=== PATIENT | female | born 1985 | race Hispanic/Latino ===

== ENCOUNTER 2018-08-19 13:54 | Emergency (ER) | payer OTHER, SELFPAY ==
[2018-08-19] MEDS ORDERED: BUPIVACAINE 0.5% PF 10 ML VIAL ONE (14:53)
[2018-08-19] MEDS ORDERED: LIDOCAINE 1% MPF 5 ML VIAL ONE ×2 (14:53→15:25)
--- NOTE | 2018-08-19 15:39 | RAD REPORT ---
EXAM DESCRIPTION: RAD - Hand Left 3 View - 08/19/2018 3:04 pm CLINICAL HISTORY: Left hand pain COMPARISON: None. FINDINGS: No fracture, dislocation or periosteal reaction noted. No foreign body or other soft tissu e abnormality. IMPRESSION: Negative left hand examination.
--- NOTE | 2018-08-19 15:58 | EDPHYS ---
Physician Documentation [facility] Name: Deborah Ace Age: 32 yrs Sex: Female : 1985 Arrival Date: 08/19/2018 Time: 13:57 Bed 10 Private MD: None, None ED Physician Wesley Alexandra HPI: 08/19 15:55 This 32 yrs old Female presents to ER via Ambulatory with complaints of Finger kb Injury. 15:55 The patient or guardian reports injury, pain, tenderness. The complaints affect the kb left little fingernail. Context: The problem was sustained at home, resulted from making bed and nail got caught. Onset: The symptoms/episode began/occurred this morning. Modifying factors: The symptoms are alleviated by nothing, the symptoms are aggravated by nothing. Associated signs and symptoms: The patient has no apparent associated signs or symptoms. Severity of symptoms: At their worst the symptoms were moderate, in the emergency department the symptoms are unchanged. The patient has experienced similar episodes in the past, a few times. The patient has not recently seen a physician. Pt was making her bed and her nail got caught. Reports she's not sure what happened, but her left little finger has been hurting since then. Does not believe nail lifted off of finger. Applied purple medication that dyed finger and some ointment with no relief. 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 - Social history:: Smoking status: Patient/guardian denies using tobacco. - Ebola Screening: : No symptoms or risks identified at this time. ROS: 15:52 Constitutional: Negative for fever, chills, and weight loss, Cardiovascular: Negative kb for chest pain, palpitations, and edema, Respiratory: Negative for shortness of breath, cough, wheezing, and pleuritic chest pain, Abdomen/GI: Negative for abdominal pain, nausea, vomiting, diarrhea, and constipation, Neuro: Negative for headache, weakness, numbness, tingling, and seizure. 15:52 MS/extremity: Positive for injury or acute deformity, pain, tenderness, of the left index finger and left index fingernail. Exam: 15:53 Constitutional: This is a well developed, well nourished patient who is awake, alert, kb and in no acute distress. Head/Face: Normocephalic, atraumatic. Chest/axilla: Normal chest wall appearance and motion. Nontender with no deformity. No lesions are appreciated. Cardiovascular: Regular rate and rhythm with a normal S1 and S2. No gallops, murmurs, or rubs. Normal PMI, no JVD. No pulse deficits. Respiratory: Lungs have equal breath sounds bilaterally, clear to auscultation and percussion. No rales, rhonchi or wheezes noted. No increased work of breathing, no retractions or nasal flaring. Abdomen/GI: Soft, non-tender, with normal bowel sounds. No distension or tympany. No guarding or rebound. No evidence of tenderness throughout. Skin: Warm, dry with normal turgor. Normal color with no rashes, no lesions, and no evidence of cellulitis. Neuro: Awake and alert, GCS 15, oriented to person, place, time, and situation. Cranial nerves II-XII grossly intact. Motor strength 5/5 in all extremities. Sensory grossly intact. Cerebellar exam normal. Normal gait. 15:53 Musculoskeletal/extremity: Nails: partial avulsion, of the left little fingernail. Vital Signs: 14:01 BP 119 / 75; Pulse 65; Resp 16; Temp 97.5; Pulse Ox 98% on R/A; Weight 72.57 kg; Height la1 5 ft. 3 in. (160.02 cm); Pain 5/10; 14:01 Body Mass Index 28.34 (72.57 kg, 160.02 cm) la1 Procedures: 15:54 Nerve block: (digital) of palmar aspect of proximal phalanx of left little finger kb Medication: Lidocaine 1% without epinephrine Marcaine 0.5%, Amount: 4 mls were injected, Effect: the patient has resolution of the pain, Set up for procedure. Performed by Alma MARTINES Patient tolerated well. MDM: 14:26 Patient medically screened. kb 15:53 Data reviewed: vital signs, nurses notes. Data interpreted: Pulse oximetry: on room air kb is 98 %. Interpretation: normal. Counseling: I had a detailed discussion with the patient and/or guardian regarding: the historical points, exam findings, and any diagnostic results supporting the discharge/admit diagnosis, radiology results, the need for outpatient follow up, a family practitioner, to return to the emergency department if symptoms worsen or persist or if there are any questions or concerns that arise at home. 08/19 14:02 Order name: Hand Left 3 View XRAY; Complete Time: 15:43 kb Administered Medications: No medications were administered Disposition: 18:47 Co-signature as Attending Physician, Wesley Alexandra MD. rn Disposition: 08/19/18 15:58 Discharged to Home. Impression: Contusion of left little finger with damage to nail - partial avulsion of nail. - Condition is Stable. - Discharge Instructions: Nail Avulsion. - Medication Reconciliation Form, Thank You Letter, Antibiotic Education, Prescription Opioid Use form. - Follow up: Emergency Department; When: As needed; Reason: Worsening of condition. Follow up: Private Physician; When: 2 - 3 days; Reason: Recheck today's complaints, Continuance of care, Re-evaluation by your physician. Signatures: Dispatcher [employer] [facility] Alma Farias, TOOL FILER HAND-C TOOL FILER HAND-Ckb Wesley Alexandra MD MD rn Jono Landaverde RN RN la1 Corrections: (The following items were deleted from the chart) 14:05 14:02 Hand Left 3 View+RAD.RAD.BRZ ordered. [facility] 16:07 15:58 08/19/2018 15:58 Discharged to Home. Impression: Contusion of left little finger la1 with damage to nail - partial avulsion of nail. Condition is Stable. Forms are Medication Reconciliation Form, Thank You Letter, Antibiotic Education, Prescription Opioid Use. Follow up: Emergency Department; When: As needed; Reason: Worsening of condition. Follow up: Private Physician; When: 2 - 3 days; Reason: Recheck today's complaints, Continuance of care, Re-evaluation by your physician. kb
--- NOTE | 2018-08-19 15:58 | ER ---
Nurse's Notes [facility] Name: Deborah Ace Age: 32 yrs Sex: Female : 1985 Arrival Date: 08/19/2018 Time: 13:57 Bed 10 Private MD: None, None Diagnosis: Contusion of left little finger with damage to nail-partial avulsion of nail Presentation: 08/19 14:00 Presenting complaint: Patient states: I jammed my left pinky in the bed this morning la1 and its hurting. Transition of care: patient was not received from another setting of care. Onset of symptoms was August 19, 2018. Risk Assessment: Do you want to hurt yourself or someone else? Patient reports no desire to harm self or others. Initial Sepsis Screen: Does the patient meet any 2 criteria? No. Patient's initial sepsis screen is negative. Does the patient have a suspected source of infection? No. Patient's initial sepsis screen is negative. Care prior to arrival: None. 14:00 Method Of Arrival: Ambulatory la1 14:00 Acuity: LUCI 4 la1 Triage Assessment: 17:30 General: Appears in no apparent distress. Injury Description: Avulsion. 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 - Social history:: Smoking status: Patient/guardian denies using tobacco. - Ebola Screening: : No symptoms or risks identified at this time. Screenin:15 Abuse screen: Denies threats or abuse. Nutritional screening: No deficits noted. la1 Tuberculosis screening: No symptoms or risk factors identified. Fall Risk None identified. Assessment: 14:15 General: Appears in no apparent distress. Behavior is calm, cooperative. Pain: la1 Complains of pain in dorsal aspect of distal phalanx of left little finger and dorsal aspect of middle phalanx of left little finger. Neuro: Level of Consciousness is awake, alert, obeys commands, Oriented to person, place, time, situation. Musculoskeletal: Circulation, motion, and sensation intact. Capillary refill < 3 seconds, is brisk, in bilateral fingers. Range of motion: limited in DIP of left little finger and PIP of left little finger. Vital Signs: 14:01 BP 119 / 75; Pulse 65; Resp 16; Temp 97.5; Pulse Ox 98% on R/A; Weight 72.57 kg; Height la1 5 ft. 3 in. (160.02 cm); Pain 5/10; 14:01 Body Mass Index 28.34 (72.57 kg, 160.02 cm) la1 ED Course: 13:57 Patient arrived in ED. mr 13:57 None, None is Private Physician. mr 14:01 Triage completed. la1 14:01 Arm band placed on left wrist. la1 14:02 Alma Farias FNP-C is PHCP. kb 14:02 Wesley Alexandra MD is Attending Physician. kb 14:15 Patient has correct armband on for positive identification. la1 14:16 No provider procedures requiring assistance completed. Patient did not have IV access la1 during this emergency room visit. 14:48 Emerald Moore, RN is Primary Nurse. iw 15:04 Hand Left 3 View XRAY In Process Unspecified. EDMS Administered Medications: No medications were administered Outcome: 15:58 Discharge ordered by MD. kb 16:06 Discharged to home ambulatory, with family. iw 16:06 Condition: good 16:06 Discharge instructions given to patient, Instructed on discharge instructions, follow up and referral plans. Demonstrated understanding of instructions, follow-up care. 16:07 Patient left the ED. la1 Signatures: Dispatcher [employer] EDMS Alma Farias FNP-C FNP-Ckb Rivera, Mary mr Emerald Moore RN Jono Montiel RN RN la1
== END 2018-08-19 16:07 | disposition home or self-care (01) ==
LOC: ER 13:54
DX: S60.152A Contusion of left little finger with damage to nail, initial encounter (principal)
CPT/HCPCS: 64450; 99283

== ENCOUNTER 2019-02-06 16:54 | Emergency (ER) | payer OTHER, SELFPAY ==
[2019-02-06] MEDS ORDERED: DICYCLOMINE HCL 10 MG CAP ONE (17:51)
[2019-02-06] MEDS ORDERED: LIDOCAINE VISCOUS 2% SOLN 15 ML UDC ONE (17:51)
[2019-02-06] MEDS ORDERED: MAGNE/ALUM HYDROXD 30 ML UCUP ONE (17:51)
[2019-02-06 17:58] LABS: Absolute Lymphocytes (CBC) 1.7 K/uL (0.7-4.9); Basophils % 0.2 % (0-1.3); Hematocrit 31.4 % (36.0-45.0); Lymphocytes % 22.5 % (15.3-44.8); MPV 12.5 fL (7.6-11.3); RBC Red Blood Cell Count 3.62 M/uL (3.86-4.86)
[2019-02-06 18:13] LABS: ALT/SGPT 44 U/L (12-78); AST/SGOT 22 U/L (15-37); Albumin 3.5 g/dL (3.4-5.0); Alkaline Phosphatase 89 U/L (45-117); BUN Blood Urea Nitrogen 8 mg/dL (7-18); Bicarbonate 26 mmol/L (21-32); Bilirubin Direct < 0.1 mg/dL (0-0.2); Bilirubin Total 0.2 mg/dL (0.2-1.0); Glucose Level 102 mg/dL (74-106); Lipase 50 U/L (73-393); Potassium 3.6 mmol/L (3.5-5.1); Sodium Level 141 mmol/L (136-145)
--- NOTE | 2019-02-06 18:55 | ER ---
Nurse's Notes [facility] Name: Deborah Ace Age: 33 yrs Sex: Female : 1985 Arrival Date: 02/06/2019 Time: 16:58 Bed 26 Private MD: Diagnosis: Upper abdominal pain, unspecified Presentation: 02/06 17:05 Presenting complaint: Epigastric pain x 2 days. Hx of gastritis. Transition of care: hb patient was not received from another setting of care. Onset of symptoms was February 05, 2019. Risk Assessment: Do you want to hurt yourself or someone else? Patient reports no desire to harm self or others. Initial Sepsis Screen: Does the patient meet any 2 criteria? No. Patient's initial sepsis screen is negative. Does the patient have a suspected source of infection? No. Patient's initial sepsis screen is negative. Care prior to arrival: None. 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 - Social history:: Smoking status: Patient/guardian denies using tobacco. - Ebola Screening: : No symptoms or risks identified at this time. Screenin:19 Abuse screen: Denies threats or abuse. Denies injuries from another. Nutritional rv screening: No deficits noted. Tuberculosis screening: No symptoms or risk factors identified. Fall Risk None identified. Assessment: 17:17 General: Appears in no apparent distress. uncomfortable, Behavior is calm, cooperative. rv Pain: Complains of pain in abdomen. Pain: Pain currently is 6 out of 10 on a pain scale. Quality of pain is described as pressure. Neuro: Level of Consciousness is awake, alert, obeys commands, Oriented to person, place, time, situation. Cardiovascular: Patient's skin is warm and dry. Respiratory: Airway is patent. GI: Bowel sounds present X 4 quads. Abd is soft and non tender X 4 quads. Reports upper abdominal pain. : No signs and/or symptoms were reported regarding the genitourinary system. EENT: No signs and/or symptoms were reported regarding the EENT system. Derm: Skin is intact, is healthy with good turgor. Musculoskeletal: No signs and/or symptoms reported regarding the musculoskeletal system. 18:18 Reassessment: Patient appears in no apparent distress at this time. Patient is alert, rv oriented x 3, equal unlabored respirations, skin warm/dry/pink. Patient denies pain at this time. Patient states feeling better. Patient states symptoms have improved. Vital Signs: 17:07 BP 114 / 76; Pulse 77; Resp 16; Temp 98.2; Pulse Ox 99% on R/A; Weight 78.47 kg; Height hb 5 ft. 3 in. (160.02 cm); Pain 7/10; 18:18 Pain 0/10; rv 18:18 Pain 0/10; rv 17:07 Body Mass Index 30.65 (78.47 kg, 160.02 cm) hb ED Course: 16:58 Patient arrived in ED. mr 17:01 Alma Farias FNP-C is [facility]. kb 17:01 Octaviano Pagan MD is Attending Physician. kb 17:06 Triage completed. hb 17:07 Arm band placed on. hb 17:12 Edwin Orozco, ZAKIYA is Primary Nurse. rv 17:19 Patient has correct armband on for positive identification. Bed in low position. Call rv light in reach. Side rails up X 1. Adult w/ patient. Pulse ox on. NIBP on. 17:59 Initial lab(s) drawn, by fl, sent to lab. Inserted saline lock: 20 gauge in right rv antecubital area, using aseptic technique. Blood collected. 19:03 No provider procedures requiring assistance completed. IV discontinued, intact, sg bleeding controlled, No redness/swelling at site. Pressure dressing applied. Administered Medications: 17:58 Drug: GI Cocktail without - (Maalox Suspension 30 ml, Lidocaine Liquid 2 % 15 rv ml) Route: PO; 18:18 Follow up: Pain 0/10 Adult; Response: No adverse reaction; Marked relief of symptoms; rv Pain is decreased 17:58 Drug: Bentyl 20 mg Route: PO; rv 18:18 Follow up: Pain 0/10 Adult; Response: No adverse reaction; Marked relief of symptoms; rv Pain is decreased Outcome: 18:52 Discharge ordered by . kb 19:03 Discharged to home ambulatory, with family. sg 19:03 Condition: good 19:03 Discharge instructions given to patient, Instructed on discharge instructions, follow up and referral plans. medication usage, safety practices, Demonstrated understanding of instructions, follow-up care, medications, Prescriptions given X 1. 19:04 Patient left the ED. Signatures: Alma Farias, AUTO BATTERY BUILDER-C LEONARDO-Patrick Aguila RN RN Isabelle Cavanaugh mr Ana Laura Gonsalves RN RN Edwin Orozco RN RN rv
--- NOTE | 2019-02-06 18:56 | EDPHYS ---
Physician Documentation [facility] Name: Deborah Ace Age: 33 yrs Sex: Female : 1985 Arrival Date: 02/06/2019 Time: 16:58 Bed 26 Private MD: ED Physician Octaviano Pagan HPI: 02/06 18:07 This 33 yrs old Female presents to ER via Ambulatory with complaints of kb Abdominal Pain. 18:07 The patient presents with abdominal pain in the epigastric area. Onset: The kb symptoms/episode began/occurred 3 day(s) ago. The symptoms do not radiate. Associated signs and symptoms: none. The symptoms are described as sharp. Modifying factors: The symptoms are alleviated by nothing, the symptoms are aggravated by food. Severity of pain: At its worst the pain was moderate in the emergency department the pain is unchanged. The patient has experienced similar episodes in the past, chronically. The patient has not recently seen a physician. Pt reports history of gastritis with similar symptoms in the past. . 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 - Social history:: Smoking status: Patient/guardian denies using tobacco. - Ebola Screening: : No symptoms or risks identified at this time. ROS: 18:10 Constitutional: Negative for fever, chills, and weight loss, ENT: Negative for injury, kb pain, and discharge, Neck: Negative for injury, pain, and swelling, Cardiovascular: Negative for chest pain, palpitations, and edema, Respiratory: Negative for shortness of breath, cough, wheezing, and pleuritic chest pain, Back: Negative for injury and pain, : Negative for injury, bleeding, discharge, and swelling, MS/Extremity: Negative for injury and deformity, Skin: Negative for injury, rash, and discoloration, Neuro: Negative for headache, weakness, numbness, tingling, and seizure. 18:10 Abdomen/GI: Positive for abdominal pain. Exam: 18:10 Constitutional: This is a well developed, well nourished patient who is awake, alert, kb and in no acute distress. Head/Face: Normocephalic, atraumatic. ENT: Nares patent. No nasal discharge, no septal abnormalities noted. Tympanic membranes are normal and external auditory canals are clear. Oropharynx with no redness, swelling, or masses, exudates, or evidence of obstruction, uvula midline. Mucous membranes moist. Neck: Trachea midline, no thyromegaly or masses palpated, and no cervical lymphadenopathy. Supple, full range of motion without nuchal rigidity, or vertebral point tenderness. No Meningismus. Chest/axilla: Normal chest wall appearance and motion. Nontender with no deformity. No lesions are appreciated. Cardiovascular: Regular rate and rhythm with a normal S1 and S2. No gallops, murmurs, or rubs. Normal PMI, no JVD. No pulse deficits. Respiratory: Lungs have equal breath sounds bilaterally, clear to auscultation and percussion. No rales, rhonchi or wheezes noted. No increased work of breathing, no retractions or nasal flaring. Back: No spinal tenderness. No costovertebral tenderness. Full range of motion. Skin: Warm, dry with normal turgor. Normal color with no rashes, no lesions, and no evidence of cellulitis. MS/ Extremity: Pulses equal, no cyanosis. Neurovascular intact. Full, normal range of motion. Neuro: Awake and alert, GCS 15, oriented to person, place, time, and situation. Cranial nerves II-XII grossly intact. Motor strength 5/5 in all extremities. Sensory grossly intact. Cerebellar exam normal. Normal gait. 18:10 Abdomen/GI: Inspection: abdomen appears normal, Bowel sounds: normal, in all quadrants, Palpation: soft, in all quadrants, moderate abdominal tenderness, in the epigastric area. Vital Signs: 17:07 BP 114 / 76; Pulse 77; Resp 16; Temp 98.2; Pulse Ox 99% on R/A; Weight 78.47 kg; Height hb 5 ft. 3 in. (160.02 cm); Pain 7/10; 18:18 Pain 0/10; rv 18:18 Pain 0/10; rv 17:07 Body Mass Index 30.65 (78.47 kg, 160.02 cm) hb MDM: 17:17 Patient medically screened. kb 18:10 Data reviewed: vital signs, nurses notes. Data interpreted: Pulse oximetry: on room air kb is 99 %. Interpretation: normal. 18:46 Counseling: I had a detailed discussion with the patient and/or guardian regarding: the kb historical points, exam findings, and any diagnostic results supporting the discharge/admit diagnosis, lab results, the need for outpatient follow up, a family practitioner, a supplier relationship director, to return to the emergency department if symptoms worsen or persist or if there are any questions or concerns that arise at home. ED course: Pt reports pain is resolved after treatment. 02/06 17:31 Order name: Basic Metabolic Panel; Complete Time: 18:18 kb 02/06 17:31 Order name: CBC with Diff; Complete Time: 18:03 kb 02/06 17:31 Order name: Hepatic Function; Complete Time: 18:18 kb 02/06 17:31 Order name: Lipase; Complete Time: 18:18 kb 02/06 17:31 Order name: IV Saline Lock; Complete Time: 17:58 kb 02/06 17:31 Order name: Labs collected and sent; Complete Time: 17:58 kb Administered Medications: 17:58 Drug: GI Cocktail without - (Maalox Suspension 30 ml, Lidocaine Liquid 2 % 15 rv ml) Route: PO; 18:18 Follow up: Pain 0/10 Adult; Response: No adverse reaction; Marked relief of symptoms; rv Pain is decreased 17:58 Drug: Bentyl 20 mg Route: PO; rv 18:18 Follow up: Pain 0/10 Adult; Response: No adverse reaction; Marked relief of symptoms; rv Pain is decreased Disposition: 02/07 08:55 Co-signature as Attending Physician, Octaviano Pagan MD I agree with the assessment and kdr plan of care. Disposition: 02/06/19 18:52 Discharged to Home. Impression: Upper abdominal pain, unspecified. - Condition is Stable. - Discharge Instructions: Gastroesophageal Reflux Disease, Adult, Abdominal Pain, Adult, [id number]. - Prescriptions for Bentyl 20 mg Oral Tablet - take 1 tablet by ORAL route every 6 hours As needed; 20 tablet. - Medication Reconciliation Form, Thank You Letter, Antibiotic Education, Prescription Opioid Use form. - Follow up: Emergency Department; When: As needed; Reason: Worsening of condition. Follow up: Private Physician; When: 2 - 3 days; Reason: Recheck today's complaints, Continuance of care, Re-evaluation by your physician. Signatures: Dispatcher [employer] EDMS Alma Farias, BEVEL POLISHER-C BEVEL POLISHER-Ckb Patrick Ziegler, RN RN sg Octaviano Pagan MD MD [facility] Ana Laura Gonsalves RN RN Edwin Orozco, RN RN rv Corrections: (The following items were deleted from the chart) 02/06 19:04 18:52 02/06/2019 18:52 Discharged to Home. Impression: Upper abdominal pain, sg unspecified. Condition is Stable. Discharge Instructions: Gastroesophageal Reflux Disease, Adult, Abdominal Pain, Adult, [id number]. Forms are Medication Reconciliation Form, Thank You Letter, Antibiotic Education, Prescription Opioid Use. Follow up: Emergency Department; When: As needed; Reason: Worsening of condition. Follow up: Private Physician; When: 2 - 3 days; Reason: Recheck today's complaints, Continuance of care, Re-evaluation by your physician. kb
[2019-02-06 22:49] VITALS: BP 114/76; TEMP 98.2; O2SAT 99
== END 2019-02-06 19:04 | disposition home or self-care (01) ==
LOC: ER 16:54
DX: R10.10 Upper abdominal pain, unspecified (principal); Z88.0 Allergy status to penicillin
CPT/HCPCS: 36415; 80048; 80076; 83690; 85025; 99284

== ENCOUNTER 2019-08-07 09:23 | Emergency (ER) | payer SELFPAY ==
[2019-08-07] MEDS ORDERED: ONDANSETRON 4 MG/2 ML VIAL ONE (10:01)
[2019-08-07] MEDS ORDERED: NA CHLORIDE 0.9% 1,000 ML ONE (10:01)
[2019-08-07 10:33] LABS: Absolute Lymphocytes (CBC) 2.2 K/uL (0.7-4.9); Basophils % 0.3 % (0-1.3); Hematocrit 33.6 % (36.0-45.0); MPV 11.7 fL (7.6-11.3); RBC Red Blood Cell Count 3.96 M/uL (3.86-4.86)
[2019-08-07 10:41] LABS: ALT/SGPT 30 U/L (12-78); AST/SGOT 17 U/L (15-37); Alkaline Phosphatase 84 U/L (45-117); BUN Blood Urea Nitrogen 11 mg/dL (7-18); Bicarbonate 26 mmol/L (21-32); Bilirubin Direct < 0.1 mg/dL (0-0.2); Bilirubin Total 0.2 mg/dL (0.2-1.0); Glucose Level 91 mg/dL (74-106); Lipase 80 U/L (73-393); Potassium 3.8 mmol/L (3.5-5.1); Protein, Total 8.2 g/dL (6.4-8.2); Sodium Level 139 mmol/L (136-145)
[2019-08-07 11:18] LABS: Urine Blood TRACE (NEG); Urine Glucose NEGATIVE (NEG); Urine Protein NEGATIVE (NEG); Urine Specific Gravity 1.025 (1.005-1.030); Urine pH 5.5 (5.0-7.0)
--- NOTE | 2019-08-07 11:36 | RAD REPORT ---
EXAM DESCRIPTION: RAD - Abdomen 1 View (KUB) - 08/07/2019 11:30 am CLINICAL HISTORY: Abd pain;Constipation Pain COMPARISON: No comparisons FINDINGS: The bowel gas pattern is non-obstructive. No evidence of free air or pneumatosis. Small no nspecific right upper quadrant calcification could be a gallstone. Moderate fecal retention. No fracture or aggressive marrow lesion. IMPRESSION: Moderate fecal retention in the colon.
--- NOTE | 2019-08-07 11:42 | ER ---
Nurse's Notes [facility] Name: Deborah Ace Age: 33 yrs Sex: Female : 1985 Arrival Date: 08/07/2019 Time: 09:25 Bed 8 Private MD: Diagnosis: Constipation;Nausea and vomiting Presentation: 08/06 09:33 Chief complaint: Patient states: Constipation x "a few days", epigastric pain and ss nausea since this AM. Coronavirus screen: The patient has NOT traveled to a country currently being monitored by the CDC within the last 14 days. Proceed with normal triage procedures. Ebola Screen: Patient denies exposure to infectious person. Patient denies travel to an Ebola-affected area in the 21 days before illness onset. Initial Sepsis Screen: Does the patient meet any 2 criteria? No. Patient's initial sepsis screen is negative. Does the patient have a suspected source of infection? No. Patient's initial sepsis screen is negative. Risk Assessment: Do you want to hurt yourself or someone else? Patient reports no desire to harm self or others. 09:33 Method Of Arrival: Ambulatory ss 09:33 Acuity: LUCI 3 ss 09:38 Onset of symptoms was July 2019. sv Historical: - Allergies: 09:29 PENICILLINS; sv - PMHx: 09:29 gastritis; sv - PSHx: 09:29 Cholecystectomy; Tubal ligation; sv - Immunization history:: Adult Immunizations up to date. - Social history:: Smoking status: Patient denies any tobacco usage or history of. Screenin:00 Abuse screen: Denies threats or abuse. Denies injuries from another. Nutritional sv screening: No deficits noted. Tuberculosis screening: No symptoms or risk factors identified. Fall Risk None identified. Assessment: 10:00 General: Appears in no apparent distress. uncomfortable, well developed, Behavior is sv cooperative, appropriate for age, restless. Pain: Complains of pain in abdomen Pain currently is 7 out of 10 on a pain scale. Quality of pain is described as crampy, Pain began 1 day ago. Is intermittent. Neuro: Level of Consciousness is awake, alert, obeys commands, Oriented to person, place, time, situation, Moves all extremities. Full function Gait is steady, Speech is normal. Respiratory: Airway is patent Respiratory effort is even, unlabored, Respiratory pattern is regular, symmetrical. GI: Abdomen is flat, Abd is soft X 4 quads Abdomen is tender to palpation in epigastric area Reports upper abdominal pain, constipation, nausea, she just had 2 BMs here. Derm: Skin is pink, warm \\T\\ dry. Musculoskeletal: Range of motion: intact in all extremities. 12:02 Reassessment: Patient appears in no apparent distress at this time. Patient and/or sv family updated on plan of care and expected duration. Pain level reassessed. Patient is alert, oriented x 3, equal unlabored respirations, skin warm/dry/pink. Patient denies pain at this time. Patient states feeling better. Patient states symptoms have improved. Vital Signs: 09:33 BP 115 / 74; Pulse 89; Resp 18; Temp 97.3(TE); Pulse Ox 100% on R/A; Weight 77.11 kg; ss Height 5 ft. 3 in. (160.02 cm); Pain 7/10; 10:16 BP 97 / 73; Pulse 64; Resp 20; Pulse Ox 99% ; sv 10:44 BP 104 / 68; Pulse 59; Resp 16; Pulse Ox 100% ; sv 09:33 Body Mass Index 30.11 (77.11 kg, 160.02 cm) ED Course: 09:25 Patient arrived in ED. mr 09:29 Arm band placed on Patient placed in an exam room, on a stretcher. sv 09:29 Patient has correct armband on for positive identification. Bed in low position. Call sv light in reach. Adult w/ patient. Door closed. Head of bed elevated. 09:34 Alma Farias FNP-C [facility]. kb 09:34 Octaviano Pagan MD is Attending Physician. kb 09:34 Triage completed. ss 09:36 Brynn Rose RN is Primary Nurse. sv 09:52 Nurse Practitioner and/or Physician Parking Patroller to see patient. sv 10:00 Inserted saline lock: 20 gauge in right antecubital area, using aseptic technique. sv Blood collected. Flushed right antecubital with 5 ml normal saline. 11:14 Urine collected: clean catch specimen, clear. dh3 11:16 Abdomen 1 View (KUB) XRAY Sent. sv 11:30 Abdomen 1 View (KUB) XRAY In Process Unspecified. EDMS 12:02 No provider procedures requiring assistance completed. IV discontinued, intact, sv bleeding controlled, No redness/swelling at site. Pressure dressing applied. Administered Medications: 10:09 Drug: NS 0.9% 1000 ml Route: IV; Rate: 1000 ml; Site: right antecubital; sv 11:00 Follow up: Response: No adverse reaction; IV Status: Completed infusion; IV Intake: sv 1000ml 10:09 Drug: Zofran (Ondansetron) 4 mg Route: IVP; Site: right antecubital; sv 11:00 Follow up: Response: No adverse reaction sv 12:01 Drug: Magnesium Citrate Liquid 300 ml Route: PO; sv 12:02 Follow up: Response: Medication administered at discharge. sv Intake: 11:00 IV: 1000ml; Total: 1000ml. sv Outcome: 11:42 Discharge ordered by . kb 12:02 Discharged to home ambulatory, with family. sv 12:02 Condition: stable 12:02 Discharge instructions given to patient, Instructed on discharge instructions, follow up and referral plans. medication usage, Demonstrated understanding of instructions, follow-up care, medications, Prescriptions given X 2. 12:02 Patient left the ED. sv Signatures: Dispatcher [employer] EDMS Alma Farias, FILING MACHINE OPERATOR-C FILING MACHINE OPERATOR-Brynn Latif, RN RN Isabelle Mathias Shelby, Hallie Cardona RN
--- NOTE | 2019-08-07 11:42 | EDPHYS ---
Physician Documentation [facility] Name: Deborah Ace Age: 33 yrs Sex: Female : 1985 Arrival Date: 08/07/2019 Time: 09:25 Bed 8 Private MD: ED Physician Octaviano Pagan HPI: 08/06 10:47 This 33 yrs old Female presents to ER via Ambulatory with complaints of kb Abdominal Pain, Nausea. 10:47 The patient presents with abdominal pain in the epigastric area. Onset: The kb symptoms/episode began/occurred this morning. The symptoms do not radiate. Associated signs and symptoms: Pertinent positives: constipation, nausea, Pertinent negatives: nausea and vomiting, diarrhea, fever. The symptoms are described as constant. Modifying factors: The symptoms are alleviated by nothing, the symptoms are aggravated by nothing. Severity of pain: At its worst the pain was moderate in the emergency department the pain is unchanged. The patient has not experienced similar symptoms in the past. Pt reports chronic constipation. States she has been going very little over the last few days. Reports epigastric pain and nausea this morning . Historical: - Allergies: 09:29 PENICILLINS; sv - PMHx: 09:29 gastritis; sv - PSHx: 09:29 Cholecystectomy; Tubal ligation; sv - Immunization history:: Adult Immunizations up to date. - Social history:: Smoking status: Patient denies any tobacco usage or history of. ROS: 10:46 Constitutional: Negative for fever, chills, and weight loss, ENT: Negative for injury, kb pain, and discharge, Neck: Negative for injury, pain, and swelling, Cardiovascular: Negative for chest pain, palpitations, and edema, Respiratory: Negative for shortness of breath, cough, wheezing, and pleuritic chest pain, Back: Negative for injury and pain, MS/Extremity: Negative for injury and deformity, Skin: Negative for injury, rash, and discoloration, Neuro: Negative for headache, weakness, numbness, tingling, and seizure. 10:46 Abdomen/GI: Positive for abdominal pain, nausea, constipation, Negative for vomiting, diarrhea, abdominal cramps, abdominal distension, anorexia. Exam: 10:46 Constitutional: This is a well developed, well nourished patient who is awake, alert, kb and in no acute distress. Head/Face: Normocephalic, atraumatic. Chest/axilla: Normal chest wall appearance and motion. Nontender with no deformity. No lesions are appreciated. Cardiovascular: Regular rate and rhythm with a normal S1 and S2. No gallops, murmurs, or rubs. Normal PMI, no JVD. No pulse deficits. Respiratory: Lungs have equal breath sounds bilaterally, clear to auscultation and percussion. No rales, rhonchi or wheezes noted. No increased work of breathing, no retractions or nasal flaring. Abdomen/GI: Soft, non-tender, with normal bowel sounds. No distension or tympany. No guarding or rebound. No evidence of tenderness throughout. Back: No spinal tenderness. No costovertebral tenderness. Full range of motion. Skin: Warm, dry with normal turgor. Normal color with no rashes, no lesions, and no evidence of cellulitis. MS/ Extremity: Pulses equal, no cyanosis. Neurovascular intact. Full, normal range of motion. Neuro: Awake and alert, GCS 15, oriented to person, place, time, and situation. Cranial nerves II-XII grossly intact. Motor strength 5/5 in all extremities. Sensory grossly intact. Cerebellar exam normal. Normal gait. Vital Signs: 09:33 BP 115 / 74; Pulse 89; Resp 18; Temp 97.3(TE); Pulse Ox 100% on R/A; Weight 77.11 kg; ss Height 5 ft. 3 in. (160.02 cm); Pain 7/10; 10:16 BP 97 / 73; Pulse 64; Resp 20; Pulse Ox 99% ; sv 10:44 BP 104 / 68; Pulse 59; Resp 16; Pulse Ox 100% ; sv 09:33 Body Mass Index 30.11 (77.11 kg, 160.02 cm) ss MDM: 09:35 Patient medically screened. kb 10:46 Data reviewed: vital signs, nurses notes. Data interpreted: Pulse oximetry: on room air kb is 100 %. Interpretation: normal. 11:41 Counseling: I had a detailed discussion with the patient and/or guardian regarding: the kb historical points, exam findings, and any diagnostic results supporting the discharge/admit diagnosis, lab results, radiology results, the need for outpatient follow up, a family practitioner, to return to the emergency department if symptoms worsen or persist or if there are any questions or concerns that arise at home. 08/06 09:55 Order name: Basic Metabolic Panel; Complete Time: 10:42 kb 08/06 09:55 Order name: CBC with Diff; Complete Time: 10:35 kb 08/06 09:55 Order name: Hepatic Function; Complete Time: 10:42 kb 08/06 09:55 Order name: Lipase; Complete Time: 10:42 kb 08/06 11:13 Order name: Urine Dipstick--Ancillary (enter results) 08/06 11:13 Order name: Urine --Ancillary (enter results) bd 08/06 09:55 Order name: IV Saline Lock; Complete Time: 10:09 kb 08/06 09:55 Order name: Labs collected and sent; Complete Time: 10:09 kb 08/06 10:42 Order name: Abdomen 1 View (KUB) XRAY; Complete Time: 11:41 kb Administered Medications: 10:09 Drug: NS 0.9% 1000 ml Route: IV; Rate: 1000 ml; Site: right antecubital; sv 11:00 Follow up: Response: No adverse reaction; IV Status: Completed infusion; IV Intake: sv 1000ml 10:09 Drug: Zofran (Ondansetron) 4 mg Route: IVP; Site: right antecubital; sv 11:00 Follow up: Response: No adverse reaction sv 12:01 Drug: Magnesium Citrate Liquid 300 ml Route: PO; sv 12:02 Follow up: Response: Medication administered at discharge. sv Disposition: 13:38 Co-signature as Attending Physician, Octaviano Pagan MD I agree with the assessment and kdr plan of care. Disposition: 08/07/19 11:42 Discharged to Home. Impression: Constipation, Nausea and vomiting. - Condition is Stable. - Discharge Instructions: Constipation, Adult, [id number]. - Prescriptions for Bentyl 20 mg Oral Tablet - take 1 tablet by ORAL route every 6 hours As needed; 20 tablet. Zofran 4 mg Oral Tablet - take 1 tablet by ORAL route every 6 hours As needed; 20 tablet. - Medication Reconciliation Form, Thank You Letter, Antibiotic Education, Prescription Opioid Use form. - Follow up: Emergency Department; When: As needed; Reason: Worsening of condition. Follow up: Private Physician; When: 2 - 3 days; Reason: Recheck today's complaints, Continuance of care, Re-evaluation by your physician. Signatures: Dispatcher [employer] EDMS Alma Farias, OWNER/OPERATOR-C OWNER/OPERATOR-Ckb Brynn Rose, RN RN Octaviano Carbone MD MD kdr Smirch, Shelby, RN RN ss Corrections: (The following items were deleted from the chart) 11:43 11:42 08/07/2019 11:42 Discharged to Home. Impression: Constipation. Condition is kb Stable. Forms are Medication Reconciliation Form, Thank You Letter, Antibiotic Education, Prescription Opioid Use. Follow up: Emergency Department; When: As needed; Reason: Worsening of condition. Follow up: Private Physician; When: 2 - 3 days; Reason: Recheck today's complaints, Continuance of care, Re-evaluation by your physician. kb 12:02 11:43 08/07/2019 11:42 Discharged to Home. Impression: Constipation; Nausea and sv vomiting. Condition is Stable. Discharge Instructions: Constipation, Adult, [id number]. Prescriptions for Bentyl 20 mg Oral Tablet - take 1 tablet by ORAL route every 6 hours As needed; 20 tablet, Zofran 4 mg Oral Tablet - take 1 tablet by ORAL route every 6 hours As needed; 20 tablet. and Forms are Medication Reconciliation Form, Thank You Letter, Antibiotic Education, Prescription Opioid Use. Follow up: Emergency Department; When: As needed; Reason: Worsening of condition. Follow up: Private Physician; When: 2 - 3 days; Reason: Recheck today's complaints, Continuance of care, Re-evaluation by your physician. kb
[2019-08-07] MEDS ORDERED: MAGNESIUM CITRATE 300 ML BOT ONE (12:02)
[2019-08-07 12:17] VITALS: TEMP 97.3
[2019-08-07 12:20] VITALS: BP 104/68; O2SAT 100
== END 2019-08-07 12:02 | disposition home or self-care (01) ==
LOC: ER 09:23
DX: K59.00 Constipation, unspecified (principal); Z88.0 Allergy status to penicillin
CPT/HCPCS: 36415; 74018; 80048; 80076; 81003; 81025; 83690; 85025; 96361; 96374; 99284; J2405; J7030